=== PATIENT | male | born 1995 | race Caucasian/White ===

== ENCOUNTER 2019-06-16 16:54 | Emergency (ER) | payer MEDICARE, MEDICAID ==
[~2019-06-16] VITALS: Ht 180.3 cm; Wt 78.3 kg
[~2019-06-16 16:54] MED LIST: FLUO60TA PO; RISP1TAB3 PO
[2019-06-16 18:25] VITALS: BP 107/74
== END 2019-06-16 18:29 | disposition home or self-care (01) ==
LOC: ER 16:55
DX: K46.9 Unspecified abdominal hernia without obstruction or gangrene (principal); F12.90 Cannabis use, unspecified, uncomplicated; Z88.8 Allergy status to other drugs, medicaments and biological substances; Z79.899 Other long term (current) drug therapy
CPT/HCPCS: 99283

== ENCOUNTER 2020-05-25 04:07 | Emergency (ER) | payer MEDICARE, MEDICAID ==
[~2020-05-25] VITALS: Ht 180.3 cm; Wt 75.0 kg
[2020-05-25] MEDS ORDERED: LIDOcaine 1% W/epiNEPHrine 1:200,000 10ml vial IJ ONE (04:30)
[2020-05-25] MEDS ORDERED: LIDOcaine 1% w/epiNEPHrine 1:200,000 30ml vial IJ ONE (04:35)
--- NOTE | 2020-05-25 04:38 | NUR ---
out to CT His hair was washed out and his left cheek was washed of the blood.
--- NOTE | 2020-05-25 05:13 | NUR ---
hematoma to the back of left hand can open and close his fist without any problem. Small abrasion as well over the hematoma.
[2020-05-25] MEDS ORDERED: CHLO118M PO (05:49)
[2020-05-25 06:01] VITALS: BP 122/64
== END 2020-05-25 06:02 | disposition home or self-care (01) ==
LOC: ER 04:07
DX: S01.01XA Laceration without foreign body of scalp, initial encounter (principal); S01.112A Laceration without foreign body of left eyelid and periocular area, initial encounter; S01.412A Laceration without foreign body of left cheek and temporomandibular area, initial encounter; R42 Dizziness and giddiness; F32.9 Major depressive disorder, single episode, unspecified; Z98.890 Other specified postprocedural states; Z88.8 Allergy status to other drugs, medicaments and biological substances; Z79.899 Other long term (current) drug therapy; X58.XXXA Exposure to other specified factors, initial encounter; Y93.89 Activity, other specified; Y92.89 Other specified places as the place of occurrence of the external cause; Y99.8 Other external cause status
CPT/HCPCS: 12002; 12011; 70450; 70486; 73130; 99285

== ENCOUNTER → 2020-06-01 | Emergency (ER) | payer MEDICARE, MEDICAID ==
[~2020-06-01] VITALS: Ht 180.3 cm; Wt 70.0 kg
[~2020-06-01] MED LIST changes: +CHLO118M PO; -RISP1TAB3 PO; +RISP1TAB98 PO
[2020-06-01 12:17] VITALS: BP 117/70
== END | disposition home or self-care (01) ==
LOC: ER 12:15
DX: S01.81XD Laceration without foreign body of other part of head, subsequent encounter (principal); F32.9 Major depressive disorder, single episode, unspecified; Z98.890 Other specified postprocedural states; Z88.8 Allergy status to other drugs, medicaments and biological substances; Z79.899 Other long term (current) drug therapy; X58.XXXD Exposure to other specified factors, subsequent encounter
CPT/HCPCS: 99281